=== PATIENT | female | born 1950 | race Native Hawaiian/Other Pacific Islander ===

== ENCOUNTER 2020-10-30 19:50 | Emergency (ER) | payer OTHER ==
[~2020-10-30] VITALS: Ht 165.1 cm; Wt 104.8 kg
[2020-10-30 19:50] VITALS: BP 125/75; TEMP 99.3
[2020-10-30 20:36] LABS: PLATELET COUNT 301 K/uL (152-353)
[2020-10-30 20:47] LABS: POTASSIUM 3.2 mmol/L (3.6-5.2)
[2020-10-31] MEDS ORDERED: GABA300C2 PO (01:50)
[2020-10-31] MEDS ORDERED: LAMICTAL ODT50 MG SL (01:56)
[2020-10-31] MEDS ORDERED: LATUDA40 MG PO (01:57)
[2020-10-31] MEDS ORDERED: TAMS0.4C PO (02:02)
[2020-10-31] MEDS ORDERED: ZYPREXA ZYDI5 MG SL (02:04)
[2020-10-31] MEDS ORDERED: ASA LOW DOSE81 MG PO (14:01)
[2020-10-31] MEDS ORDERED: HYDROCODONE BIT1 TA1 PO (14:01)
== END 2020-10-30 21:33 | disposition still patient (30) ==
LOC: ED 19:50
PROVIDERS: Hospitalist
DX: F60.2 Antisocial personality disorder (principal); Z11.52 Encounter for screening for COVID-19; Z04.6 Encounter for general psychiatric examination, requested by authority; I10 Essential (primary) hypertension; M54.89 Other dorsalgia
CPT/HCPCS: 36415; 80053; 81000; 85027; 87077; 87086; 87088; 87186; 87635; 93005; 99283; U0003